=== PATIENT | female | born 1970 | race Caucasian/White ===

== ENCOUNTER 2023-08-31 09:39 | Outpatient (CLI) | payer BC | END 2023-08-31 09:40 | disposition home or self-care (01) | LOC: CSHMAMMO 09:39 | PROVIDERS: ATTEND Obstetrics & Gynecology | DX: Z12.31 Encounter for screening mammogram for malignant neoplasm of breast (principal); Z13.820 Encounter for screening for osteoporosis; Z78.0 Asymptomatic menopausal state; Z80.3 Family history of malignant neoplasm of breast; Z91.89 Other specified personal risk factors, not elsewhere classified; Z85.850 Personal history of malignant neoplasm of thyroid | CPT/HCPCS: 77063; 77067; 77080 ==

== ENCOUNTER 2024-03-11 13:57 | Outpatient (CLI) | payer BC | END 2024-03-11 13:58 | disposition home or self-care (01) | LOC: CSHULT 13:57 | PROVIDERS: ATTEND Family Medicine | DX: R06.09 Other forms of dyspnea (principal); I10 Essential (primary) hypertension; I51.9 Heart disease, unspecified | CPT/HCPCS: 93306 ==